=== PATIENT | male | born 1990 | race Caucasian/White ===

== ENCOUNTER 2017-08-18 11:47 | Emergency (ER) | payer BC, OTHER ==
[~2017-08-18] VITALS: Ht 170.2 cm; Wt 72.6 kg
[2017-08-18 12:33] LABS: BASOPHILS % (AUTO) 1 % (0-10); EOSINOPHILS % (AUTO) 0 % (0-10); HEMATOCRIT 44 % (40-54); HEMOGLOBIN 15.9 G/DL (13.3-17.7); LYMPHOCYTES # (AUTO) 0.9 X 10^3 (1.0-4.0); LYMPHOCYTES % (AUTO) 15 % (12-44); MEAN CORPUSCULAR HEMOGLOBIN 32 PG (25-34); MEAN CORPUSCULAR HGB CONC 36 G/DL (32-36); MEAN CORPUSCULAR VOLUME 89 FL (80-99); MEAN PLATELET VOLUME 10.1 FL (7.4-10.4); MONOCYTES # (AUTO) 0.7 X 10^3 (0.0-1.0); MONOCYTES % (AUTO) 12 % (0-12); NEUTROPHILS % (AUTO) 71 % (42-75); PLATELET COUNT 234 10^3/uL (130-400); RED BLOOD COUNT 4.94 10^6/uL (4.35-5.85); RED CELL DISTRIBUTION WIDTH 11.7 % (10.0-14.5); WHITE BLOOD COUNT 5.6 10^3/uL (4.3-11.0)
[2017-08-18] MEDS ORDERED: DOXY100C2 PO (12:43)
[2017-08-18] MEDS ORDERED: OSEL30CA PO (12:43)
[2017-08-18] MEDS ORDERED: NS IV 1000 ML 1,000 ML IV SCH (12:51)
[2017-08-18 12:58] LABS: ALANINE AMINOTRANSFERASE 19 U/L (0-55); ALBUMIN 4.6 GM/DL (3.2-4.5); ALKALINE PHOSPHATASE 73 U/L (40-136); BILIRUBIN,TOTAL 0.7 MG/DL (0.1-1.0); BUN/CREATININE RATIO 11; CALCIUM 9.5 MG/DL (8.5-10.1); CARBON DIOXIDE 29 MMOL/L (21-32); CHLORIDE 104 MMOL/L (98-107); CREATININE SERUM 1.03 MG/DL (0.60-1.30); GFR ESTIMATED > 60; GLUCOSE 105 MG/DL (70-105); POTASSIUM 4.5 MMOL/L (3.6-5.0); SODIUM 139 MMOL/L (135-145); TOTAL PROTEIN 7.1 GM/DL (6.4-8.2)
[2017-08-18] MEDS ORDERED: ONDANSETRON 4 MG/2 ML (SDV) Z0FRAN IVP ONE (13:00)
--- NOTE | 2017-08-18 13:15 | Diagnostic Imaging Report ---
INDICATION: Chills, headaches, fever. COMPARISON: None. FINDINGS: A single view of the chest demonstrates clear lungs bilaterally. The heart is normal. There is no pneumothorax. The osseous structures are normal. IMPRESSION: Negative chest. Dictated by: Dictated on workstation # [id number]
--- NOTE | 2017-08-18 13:32 | ED General ---
General Chief Complaint: Cough/Cold/Flu Symptoms Stated Complaint: THROWING UP THIS MORNING,POSS FLU Nursing Triage Note: PT CO OF COLD COUGH AND FLU SX, PT HAS +FLU SINCE YESTERDAY, WAS EXPOSED LAST WEEK TO BACTERIAL MENIGITIS. PT HAS HAD FEVER, STIFF NECK, JOSEPH AND VOMITING SINCE THIS AM Nursing Sepsis Screen: No Definite Risk Source of Information: Patient Exam Limitations: No Limitations History of Present Illness Date Seen by Provider: Aug 18, 2017 Time Seen by Provider: 12:05 Initial Comments This 26-year-old gentleman presents to the emergency room with complaints of flulike symptoms that started about 48 hours ago. He was seen yesterday at urgent care and was diagnosed with influenza. He was prescribed Tamiflu and doxycycline. He has developed sore throat, vomiting, myalgia, headache, chills , cough, and congestion. Symptoms have worsened a little since yesterday, in particular the nausea and vomiting. Patient had a potential meningitis exposure from a coworker recently. A little over a week ago he coworker from [employer] and he was responsible for cleaning out the 's desk. He only wore gloves during that process. He did receive the prophylactic Cipro after the exposure. Vital signs are within normal limits at this time. Allergies and Home Medications Allergies Coded Allergies: No Known Drug Allergies (Unverified , 08/18/17) Home Medications Doxycycline Hyclate 100 Mg Capsule, 100 MG PO BID, (Reported) Ondansetron 4 Mg Tab.rapdis, 4 MG SL Q4H PRN for NAUSEA/VOMITING-1ST LINE Prescribed by: MILY VARGAS on 08/18/17 1336 Oseltamivir Phosphate 30 Mg Capsule, 30 MG PO BID, (Reported) Patient Home Medication List Home Medication List Reviewed: Yes Constitutional: see HPI EENTM: see HPI Respiratory: see HPI, cough Cardiovascular: no symptoms reported Gastrointestinal: see HPI Genitourinary: no symptoms reported Musculoskeletal: see HPI Skin: no symptoms reported Psychiatric/Neurological: See HPI Hematologic/Lymphatic: No Symptoms Reported Past Rcytarm-Ahnkwx-Vsdpzs Hx Patient Social History Alcohol Use: Rarely Uses Recreational Drug Use: No Smoking Status: Never a Smoker Recent Foreign Travel: No Contact w/Someone Who Travel: No Recent Infectious Disease Expo: No Recent Hopitalizations: No Seasonal Allergies Seasonal Allergies: No Surgeries History of Surgeries: No Respiratory History of Respiratory Disorde: No Cardiovascular History of Cardiac Disorders: No Neurological History of Neurological Disord: No Genitourinary History of Genitourinary Disor: No Gastrointestinal History of Gastrointestinal Di: No Musculoskeletal History of Musculoskeletal Dis: No Endocrine History of Endocrine Disorders: No HEENT History of HEENT Disorders: No Cancer History of Cancer: No Psychosocial History of Psychiatric Problem: No Integumentary History of Skin or Integumenta: No Blood Transfusions History of Blood Disorders: No Physical Exam Vital Signs Vital Signs - First Documented 08/18/17 12:05 Temp 98.1 Pulse 77 Resp 18 B/P (MAP) 142/85 (104) Pulse Ox 100 Capillary Refill : Less Than 3 Seconds General Appearance: No Apparent Distress, WD/WN HEENT: PERRL/EOMI, TMs Normal, Normal ENT Inspection, Other (oropharynx hyperemic) Neck: Normal Inspection, Supple Respiratory: Lungs Clear, Normal Breath Sounds, No Accessory Muscle Use, No Respiratory Distress Cardiovascular: Regular Rate, Rhythm, No Edema, No Murmur Gastrointestinal: Normal Bowel Sounds, Non Tender, Soft Extremity: Normal Inspection, No Pedal Edema Neurologic/Psychiatric: Alert, Oriented x3, No Motor/Sensory Deficits, Normal Mood/Affect, software product manager II-XII Norm as Tested Skin: Normal Color, Warm/Dry Progress/Results/Core Measures Suspected Sepsis Recent Fever Within 48 Hours: Yes Infection Criteria Present: Suspected New Infection New/Unexplained Altered Menta: No Sepsis Screen: No Definite Risk Sepsis Diagnosis: SIRS Temperature:98.1 Pulse: 77 Respiratory Rate: 18 Laboratory Tests 08/18/17 12:15: White Blood Count 5.6 Blood Pressure 142 /85 Mean: 104 Laboratory Tests 08/18/17 12:15: Creatinine 1.03, Platelet Count 234, Total Bilirubin 0.7 Results/Orders Lab Results Laboratory Tests Test 08/18/17 12:15 Range/Units White Blood Count 5.6 4.3-11.0 10^3/uL Red Blood Count 4.94 4.35-5.85 10^6/uL Hemoglobin 15.9 13.3-17.7 G/DL Hematocrit 44 40-54 % Mean Corpuscular Volume 89 80-99 FL Mean Corpuscular Hemoglobin 32 25-34 PG Mean Corpuscular Hemoglobin Concent 36 32-36 G/DL Red Cell Distribution Width 11.7 10.0-14.5 % Platelet Count 234 130-400 10^3/uL Mean Platelet Volume 10.1 7.4-10.4 FL Neutrophils (%) (Auto) 71 42-75 % Lymphocytes (%) (Auto) 15 12-44 % Monocytes (%) (Auto) 12 0-12 % Eosinophils (%) (Auto) 0 0-10 % Basophils (%) (Auto) 1 0-10 % Neutrophils # (Auto) 4.0 1.8-7.8 X 10^3 Lymphocytes # (Auto) 0.9 L 1.0-4.0 X 10^3 Monocytes # (Auto) 0.7 0.0-1.0 X 10^3 Eosinophils # (Auto) 0.0 0.0-0.3 10^3/uL Basophils # (Auto) 0.0 0.0-0.1 10^3/uL Sodium Level 139 135-145 MMOL/L Potassium Level 4.5 3.6-5.0 MMOL/L Chloride Level 104 98-107 MMOL/L Carbon Dioxide Level 29 21-32 MMOL/L Anion Gap 6 5-14 MMOL/L Blood Urea Nitrogen 11 7-18 MG/DL Creatinine 1.03 0.60-1.30 MG/DL Estimat Glomerular Filtration Rate > 60 BUN/Creatinine Ratio 11 Glucose Level 105 70-105 MG/DL Calcium Level 9.5 8.5-10.1 MG/DL Total Bilirubin 0.7 0.1-1.0 MG/DL Aspartate Amino Transf (AST/SGOT) 18 5-34 U/L Alanine Aminotransferase (ALT/SGPT) 19 0-55 U/L Alkaline Phosphatase 73 40-136 U/L C-Reactive Protein High Sensitivity 2.38 H 0.00-0.50 MG/DL Total Protein 7.1 6.4-8.2 GM/DL Albumin 4.6 H 3.2-4.5 GM/DL Monoscreen NEGATIVE NEGATIVE My Orders Orders - MILY SAHNI MD Cbc With Automated Diff (08/18/17 12:05) Comprehensive Metabolic Panel (08/18/17 12:05) Hs C Reactive Protein (08/18/17 12:05) Blood Culture (08/18/17 12:05) Saline Lock/Iv-Start (08/18/17 12:05) Saline Lock/Iv-Start (08/18/17 12:51) Ns Iv 1000 Ml (Sodium Chloride 0.9%) (08/18/17 12:51) Ondansetron Injection (Zofran Injectio (08/18/17 13:00) Chest 1 View, Ap/Pa Only (08/18/17 12:52) Monotest (08/18/17 13:12) Medications Given in ED Current Medications Medications Dose Ordered Sig/Rebecca Route Start Time Stop Time Status Last Admin Dose Admin Ondansetron HCl 8 mg ONCE ONCE IVP 08/18/17 13:00 08/18/17 13:01 DC 08/18/17 13:01 8 MG Vital Signs/I&O Vital Sign - Last 12Hours 08/18/17 08/18/17 12:05 13:41 Temp 98.1 Pulse 77 65 Resp 18 18 B/P (MAP) 142/85 (104) 131/79 Pulse Ox 100 100 Capillary Refill : Less Than 3 Seconds Blood Pressure Mean: 104 Progress Note : Progress Note Patient's workup was relatively unremarkable. Symptomatology seems to correlate very well with his positive influenza screening yesterday. He is afebrile at this time without leukocytosis or significant CRP elevation. It is very doubtful his symptoms are related to the meningitis exposure. I discussed lumbar puncture with the patient and offered lumbar puncture if he desired. Patient wished to return home without lumbar puncture. I gave him strict return precautions. Patient was hydrated with IV fluids and treated with Zofran. The nausea and vomiting that started within the last 24 hours is likely related to use of Tamiflu and doxycycline. Diagnostic Imaging Diagonstic Imaging: Xray Plain Films/CT/US/NM/MRI: chest Comments Chest x-ray viewed by me and report reviewed. See report below: NAME: MARIUSZ SANTO [facility] REC#: [id number] PT STATUS: REG ER : 1990 PHYSICIAN: MILY SAHNI MD ADMIT DATE: 08/18/17/ER Signed Date of Exam: 08/18/17 CHEST 1 VIEW, AP/PA ONLY INDICATION: Chills, headaches, fever. COMPARISON: None. FINDINGS: A single view of the chest demonstrates clear lungs bilaterally. The heart is normal. There is no pneumothorax. The osseous structures are normal. IMPRESSION: Negative chest. Dictated by: Dictated on workstation # [id number] Dict: 08/18/17 1303 Trans: 08/18/17 1329 Interpreted by: MARIUSZ SMITH Electronically signed by: MARIUSZ SMITH 08/18/17 1329 Departure Impression Impression: Primary Impression: Influenza Additional Impression: Nausea & vomiting Qualified Codes: R11.2 - Nausea with vomiting, unspecified Disposition: HOME, SELF-CARE Condition: Improved Departure-Patient Inst. Decision time for Depature: 13:30 Referrals: NO,LOCAL PHYSICIAN (PCP/Family) Primary Care Physician Patient Instructions: Flu Add. Discharge Instructions: Drink plenty of clear liquids. Gradually advance your diet with small quantities of bland food as tolerated. Complete your Tamiflu and doxycycline prescriptions. Return to the emergency room if you have worsening symptoms of recurrent fever over 100, headache, lethargy, or other concerns. You may take Tylenol (acetaminophen) up to 1000 mg every 6 hours as needed and/ or ibuprofen up to 600 mg every 6 hours as needed for pain or fever. Even with Tamiflu, it may take several days for you to recover from influenza. Do not return to work until Sunday at the earliest. All discharge instructions reviewed with patient and/or family. Voiced understanding. Scripts Ondansetron (Zofran Odt) 4 Mg Tab.rapdis 4 MG SL Q4H Y for NAUSEA/VOMITING-1ST LINE, #10 TAB Prov: MILY SAHNI MD 08/18/17 Work/School Note: Work Release Form Date Seen in the Emergency Department: Aug 18, 2017 Return to Work: Aug 21, 2017 Restrictions: Return-No Fever (24hrs) Other Restrictions Listed Below: Return to work when fever free for 24 hours and symptoms resolve. MILY SAHNI MD Aug 18, 2017 13:32
[2017-08-18] MEDS ORDERED: ONDA4TAB8 SL (13:36)
[2017-08-18 13:41] VITALS: BP 131/79
== END 2017-08-18 13:41 | disposition home or self-care (01) ==
LOC: EDUNIT# 11:47 → ER 11:50
DX: J11.1 Influenza due to unidentified influenza virus with other respiratory manifestations (principal); R11.2 Nausea with vomiting, unspecified
CPT/HCPCS: 36415; 71045; 80053; 85025; 86141; 86308; 87040; 96361; 96374

== ENCOUNTER 2021-10-04 21:53 | Emergency (ER) | payer BC ==
[~2021-10-04] VITALS: Ht 170 cm; Wt 74.0 kg
[~2021-10-04 21:53] MED LIST: DOXY100C5 PO; ONDA4TAB8 SL; OSEL30CA PO
[2021-10-04 22:00] VITALS: BP 137/92
[2021-10-04] MEDS ORDERED: RX-ONDANSETRON 4 MG ODT (ZOFRAN) PPK #4 PO STA (22:08)
--- NOTE | 2021-10-04 22:11 | ED GI ---
General Chief Complaint: Abdominal/GI Problems Stated Complaint: NAUSEA, CANT EAT Source of Information: Patient Exam Limitations: No Limitations History of Present Illness Date Seen by Provider: October 04, 2021 Time Seen by Provider: 21:57 Initial Comments Patient to the ER by private conveyance with chief complaint of nausea without vomiting and some loose stools since earlier this morning. No known sick contacts. No fevers or chills. No significant history of medical problems or surgical problems. He has been with his on third floor and she had a baby this morning. No blood in the stool. No history of IBS/IBD. Allergies and Home Medications Allergies Coded Allergies: No Known Drug Allergies (Unverified , 08/18/17) Patient Home Medication List Home Medication List Reviewed: Yes Discontinued Medications Doxycycline Hyclate (Doxycycline Hyclate) 100 Mg Capsule, 100 MG PO BID, (Reported) Discontinued Reason: No Longer Taking Entered as Reported by: STEPHANIE HELM on 08/18/17 1243 Last Action: Discontinued Ondansetron (Zofran Odt) 4 Mg Tab.rapdis, 4 MG SL Q4H PRN for NAUSEA/VOMITING- 1ST LINE Discontinued Reason: No Longer Taking Prescribed by: MILY VARGAS on 08/18/17 1336 Last Action: Discontinued Oseltamivir Phosphate (Tamiflu) 30 Mg Capsule, 30 MG PO BID, (Reported) Discontinued Reason: No Longer Taking Entered as Reported by: STEPHANIE HELM on 08/18/17 1243 Last Action: Discontinued Review of Systems Review of Systems Constitutional: No chills, No fever; malaise EENTM: No Blurred Vision, No Double Vision Respiratory: Denies Cough, Denies Shortness of Air Cardiovascular: Denies Chest Pain, Denies Lightheadedness Gastrointestinal: Denies Constipated; Diarrhea, Nausea, Poor Fluid Intake; Denies Vomiting Genitourinary: Denies Discharge, Denies Drainage Musculoskeletal: No back pain, No joint pain All Other Systems Reviewed Negative Unless Noted: Yes Past Aknvknp-Bjlizh-Aatbpd Hx Patient Social History Tobacco Use?: No Substance use?: No Alcohol Use?: No Pt feels they are or have been: No Seasonal Allergies Seasonal Allergies: No Past Medical History Surgery/Hospitalization HX: denies Surgeries: No Respiratory: No Cardiac: No Neurological: No Genitourinary: No Gastrointestinal: No Musculoskeletal: No Endocrine: No HEENT: No Cancer: No Psychosocial: No Integumentary: No Blood Disorders: No Physical Exam Vital Signs Vital Signs - First Documented 10/04/21 22:00 Temp 36.7 Pulse 68 Resp 16 B/P (MAP) 137/92 (107) Pulse Ox 98 O2 Delivery Room Air Capillary Refill : Height/Weight/BMI Height: 5'7.00" Weight: 160lbs. oz. 72.647086ft; BMI Method:Stated General Appearance: WD/WN, no apparent distress HEENT: PERRL/EOMI; No pharynx normal (Mildly dry oral mucosa) Neck: full range of motion, supple, normal inspection Respiratory: lungs clear, normal breath sounds, no respiratory distress, no accessory muscle use Cardiovascular: normal peripheral pulses, regular rate, rhythm Peripheral Pulses: 2+ Radial Pulses (R), 2+ Radial Pulses (L) Gastrointestinal: normal bowel sounds, non tender, soft, no organomegaly Neurologic/Psychiatric: alert, normal mood/affect, oriented x 3 Skin: normal color, warm/dry Progress/Results/Core Measures Results/Orders My Orders Orders - RADHA WONG Rx-Ondansetron Po (Rx-Zofran Po) (10/04/21 22:08) Vital Signs/I&O 10/04/21 22:00 Temp 36.7 Pulse 68 Resp 16 B/P (MAP) 137/92 (107) Pulse Ox 98 O2 Delivery Room Air Progress Progress Note #1: Time: 22:10 Progress Note We will give him some Zofran and a glass of water and reexamine in about 15 to 20 minutes. Likely he has a viral GI bug. He has a soft nontender, nonsurgical abdomen. Vital signs are normal, aseptic. Progress Note #2: Time: 22:57 Progress Note Patient is feeling little better, has had no vomiting. His nausea is better after Zofran. He did drink some fluids but encourage him to go home and continue doing that with sports drinks. Departure Impression Primary Impression: Gastroenteritis and colitis, viral Disposition: 01 HOME, SELF-CARE Condition: Stable Departure-Patient Inst. Decision time for Depature: 22:58 Referrals: NO,LOCAL PHYSICIAN (PCP/Family) Primary Care Physician Patient Instructions: Viral Gastroenteritis, Adult (DC) Add. Discharge Instructions: Drink lots of fluids. Sports drinks especially such as Gatorade or Powerade. Ondansetron 4 to 8 mg every 6 hours as needed for nausea or vomiting. Return to the ER for intractable nausea or vomiting. If you have diarrhea then take Imodium 2 tablets at first followed by 1 tablet every 4 hours afterwards that you are still having loose, watery stools. All discharge instructions reviewed with patient and/or family. Voiced understanding. Scripts Ondansetron (Ondansetron Odt) 4 Mg Tab.rapdis 4-8 MG PO Q6H PRN for NAUSEA/VOMITING, #15 TAB 0 Refills Prov: RADHA WONG 10/04/21 Work/School Note: Work Release Form Date Seen in the Emergency Department: October 04, 2021 Return to Work: October 07, 2021 Restrictions: No Restrictions RADHA WONG October 04, 2021 22:11
[2021-10-04] MEDS ORDERED: ONDA4TAB11 PO (22:59)
== END 2021-10-04 23:03 | disposition home or self-care (01) ==
LOC: EDUNIT# 21:53 → ER 21:57
DX: A08.4 Viral intestinal infection, unspecified (principal)
CPT/HCPCS: 99283